=== PATIENT | male | born 1950 | race Caucasian/White ===

== ENCOUNTER 2018-04-20 20:09 | Inpatient (IN) | payer MEDICARE, OTHER ==
[~2018-04-20] VITALS: Ht 198.1 cm; Wt 118.8 kg
[2018-04-20] MEDS ORDERED: ONDANSETRON 2MG/ML, 2ML ONE (20:29)
[2018-04-20] MEDS ORDERED: ASPIRIN 81 MG TABLET CHEW ONE (20:29)
[2018-04-20] MEDS ORDERED: ASPIRIN 81 MG TABLET CHEW PO ONE (20:30)
[2018-04-20] MEDS ORDERED: SODIUM CHLORIDE FLUSH 10ML SYR IVF ONE (20:30)
[2018-04-20] MEDS ORDERED: ONDANSETRON 2MG/ML, 2ML IVPush ONE (20:30)
[2018-04-20] MEDS ORDERED: MORPHINE SULFATE 4 MG/ML, 1ML ONE (20:43)
[2018-04-20 20:45] LABS: BASOPHILS # (AUTO) 0.02 x10^3/uL (0-0.1); BASOPHILS % (AUTO) 0 % (0-1); EOSINOPHILS # (AUTO) 0.04 x10^3/uL (0-0.4); EOSINOPHILS % (AUTO) 0 % (1-7); LYMPHOCYTES # (AUTO) 1.06 x10^3/uL (1-3.4); LYMPHOCYTES % (AUTO) 10 % (22-44); MD NO; MEAN CORPUSCULAR HEMOGLOBIN 32.8 pg (27.5-34.5); MEAN CORPUSCULAR HGB CONC 34.4 g/dL (33.2-36.2); MEAN CORPUSCULAR VOLUME 95.3 fL (81-97); MEAN PLATELET VOLUME 7.9 fL (7.4-10.4); MONOCYTES # (AUTO) 0.62 x10^3/uL (0.2-0.8); MONOCYTES % (AUTO) 6 % (2-9); NEUTROPHILS % (AUTO) 84 % (42-75); PLATELET COUNT 242 x10^3/uL (130-400); RED BLOOD COUNT 4.78 x10^6/uL (4.38-5.82); RED CELL DISTRIBUTION WIDTH 12.6 % (9.4-14.8)
[2018-04-20] MEDS ORDERED: PROMETHAZINE 25 MG/ML, 1ML ONE (20:48)
[2018-04-20 20:59] LABS: ALANINE AMINOTRANSFERASE 26 U/L (12-78); ALBUMIN 3.7 g/dL (3.4-5.0); ANION GAP 10 mmol/L (5-15); CALCIUM 8.5 mg/dL (8.5-10.1); CHLORIDE 111 mmol/L (98-107); CREATININE 1.21 mg/dL (0.7-1.3)
[2018-04-20] MEDS ORDERED: PROMETHAZINE 25 MG/ML, 1ML IM ONE (21:00)
[2018-04-20] MEDS ORDERED: morphine SULFATE 10 MG/ML, 1ML IVPush ONE (21:00)
[2018-04-20 21:04] LABS: ALKALINE PHOSPHATASE 67 U/L (45-117); BILIRUBIN,TOTAL 0.8 mg/dL (0.2-1.0); TOTAL PROTEIN 7.3 g/dL (6.4-8.2); TROPONIN I < 0.015 ng/mL (0.000-0.045)
[2018-04-20] MEDS ORDERED: HYDROmorphone 2 MG/ML, 1ML ONE (21:17)
[2018-04-20] MEDS: HYDROmorphone 2 MG/ML, 1ML IVPush PRN ×2 (21:22→21:57)
[2018-04-20] MEDS ORDERED: DIAZ10TA PO (21:28)
[2018-04-20] MEDS ORDERED: FLUO40CA9 PO (21:28)
[2018-04-20] MEDS ORDERED: NS + 20MEQ KCL 1,000 ML IV SCH (21:44)
[2018-04-20] MEDS ORDERED: DOCUSATE 100 MG CAPSULE PO PRN (22:00)
[2018-04-20] MEDS ORDERED: OXYcodone IR 5MG TABLET PO PRN (22:00)
[2018-04-20] MEDS ORDERED: LORazepam 1MG TABLET PO PRN (22:00)
[2018-04-20] MEDS ORDERED: POLYETHYLENE GLYCOL 17 GM PACKET PO PRN (22:00)
[2018-04-20] MEDS ORDERED: morphine SULFATE 10 MG/ML, 1ML IVPush PRN (22:00)
[2018-04-20] MEDS ORDERED: ACETAMINOPHEN 325 MG TABLET PO PRN (22:00)
[2018-04-20] MEDS ORDERED: ONDANSETRON 2MG/ML, 2ML IVPush PRN (22:00)
[2018-04-20 22:18] VITALS: BP 125/79
[2018-04-21] MEDS: ENOXAPARIN 40 MG/0.4 ML SQ SCH ×2 (00:08→19:55)
[2018-04-21] MEDS: FAMOTIDINE 20 MG TABLET PO SCH ×3 (00:08→19:48)
[2018-04-21 03:04] VITALS: BP 103/57
[2018-04-21 05:41] LABS: ANION GAP 9 mmol/L (5-15); CALCIUM 8.1 mg/dL (8.5-10.1); CHLORIDE 113 mmol/L (98-107); CREATININE 1.12 mg/dL (0.7-1.3)
[2018-04-21 05:45] LABS: TROPONIN I < 0.015 ng/mL (0.000-0.045)
[2018-04-21 07:45] VITALS: BP_SYST 126; BP_SYST 76; BP_DIAS 76
[2018-04-21] MEDS ORDERED: LACTATED RINGERS 1,000 ML IV SCH (08:00)
[2018-04-21] MEDS: LACTATED RINGERS 1,000 ML IV SCH ×2 (08:09→23:34)
[2018-04-21] MEDS: FLUOXETINE HCL 20 MG CAPSULE PO SCH (08:09)
[2018-04-21] MEDS: SENNA/DOCUSATE TABLET PO SCH (08:09)
[2018-04-21] MEDS: SUCRALFATE 1 GM/10 ML UDC PO SCH ×3 (12:16→19:48)
[2018-04-21 14:24] VITALS: BP 116/73
[2018-04-21 18:57] VITALS: BP 145/97
[2018-04-22 02:37] VITALS: BP 166/92
[2018-04-22] MEDS: SUCRALFATE 1 GM/10 ML UDC PO SCH ×2 (05:20→11:00)
[2018-04-22 07:53] LABS: ANION GAP 7 mmol/L (5-15); CALCIUM 7.9 mg/dL (8.5-10.1); CHLORIDE 109 mmol/L (98-107); CREATININE 1.14 mg/dL (0.7-1.3)
[2018-04-22 08:15] VITALS: BP 146/87
[2018-04-22] MEDS: SENNA/DOCUSATE TABLET PO SCH (09:00)
[2018-04-22] MEDS: FAMOTIDINE 20 MG TABLET PO SCH (09:33)
[2018-04-22] MEDS: FLUOXETINE HCL 20 MG CAPSULE PO SCH (09:35)
[2018-04-22 10:00] VITALS: BP 137/82
== END 2018-04-22 11:40 | disposition home or self-care (01) | DRG 391 ==
LOC: ED 21:20 → EDIP 21:25 → SUATTDRO 21:33 → 3NE 22:40 → DCLOUNGE 04-22 11:36
PROVIDERS: ADMIT Family Medicine; ATTEND Family Medicine
DX: K29.20 Alcoholic gastritis without bleeding (principal); K85.20 Alcohol induced acute pancreatitis without necrosis or infection; J98.11 Atelectasis; F41.1 Generalized anxiety disorder; K44.9 Diaphragmatic hernia without obstruction or gangrene; Z79.899 Other long term (current) drug therapy
CPT/HCPCS: 36415; 71045; 80048; 80053; 80164; 83690; 83735; 84100; 84484; 85025; 93005; 96372; 96374; 96375; G0378; J1170; J1650; J2405; J2550; J3480; J2270; J7120